=== PATIENT | male | born 1950 | race Hispanic/Latino ===

== ENCOUNTER → 2018-05-04 | Day surgery (SDC) | payer MEDICARE ==
[~2018-05-04] MED LIST: LEVOTHYROXINE75 MCG PO; MIDAZOLAM HCL 2 MG/2 ML VIAL ONE; SIMVASTATIN20 MG PO; VASOTEC10 MG PO
--- OUTSIDE RECORDS SUMMARY | 2018-05-04 07:58 | XMS REPORT | Summary of Care ---
Author Author [facility] Organization [facility] Address Unknown Phone Unavailable Encounter HQ Ana Cristina(FIN) [id number] Date(s): 04/27/18 - 04/27/18 [facility] [address], [address] [place], [place] [address]- [phone] Discharge Disposition: Home or Self Care Attending Physician: Maine Watters MD Vital Signs Most recent to 1 oldest [Reference Range]: Height 162.56 cm (04/27/18 8:05 AM) Temperature Oral 98.9 DegF [96.4-99.1 DegF] (04/27/18 8:05 AM) Blood Pressure 139/70 mmHg [90-140/60-90 mmHg] (04/27/18 8:05 AM) Respiratory Rate 16 BRMIN [14-20 BRMIN] (04/27/18 8:05 AM) Peripheral Pulse 53 bpm Rate [60-100 bpm] *LOW* (04/27/18 8:05 AM) Weight 71.989 kg (04/27/18 8:05 AM) Body Mass Index 27.24 m2 (04/27/18 8:05 AM) Problem List Condition Effective Dates Status Health Status Informant Benign essential Active hypertension(Confirm ed) Bilateral hearing Active loss(Confirmed) Body mass index Active 27.0-27.9, adult(Confirmed) Decreased Active libido(Confirmed) Vitamin B12 Active deficiency(Confirmed ) CPAP (continuous Active positive airway pressure) dependence(Confirmed ) GERD - Active Gastro-esophageal reflux disease(Confirmed) Uses hearing Active aid(Confirmed) History of Resolved Helicobacter pylori infection(Confirmed) History of colonic Active polyps(Confirmed) Hypercholesterolemia Active (Confirmed) Hypogonadism(Confirm Active ed) Hypothyroidism(Confi Active rmed) Medicare annual Active wellness visit, subsequent(Confirmed ) Overweight(Confirmed Active ) Encounter for Active immunization(Confirm ed) Screening for colon Active cancer(Confirmed) Screening for Active prostate cancer(Confirmed) Sleep Active apnea(Confirmed) Allergies, Adverse Reactions, Alerts Substance Reaction Severity Status NKDA Active Medications No Known Medications Results No data available for this section Immunizations Given and Recorded Vaccine Date Status Refusal Reason pneumococcal 13-valent vaccine1 04/27/18 Given pneumococcal 23-valent vaccine2 09/15/17 Given influenza virus vaccine, inactivated 12/17/16 Given influenza virus vaccine, inactivated 12/14/15 Given 1Result Comment: Patient waited 15 min with no reaction. 2Result Comment: Patient waited 15 min with no reaction. Procedures Procedure Date Related Diagnosis Body Site Status Pneumococcal vaccination1 04/27/18 Completed Comprehensive eye examination2 11/21/17 Completed Pneumococcal vaccination3 09/15/17 Completed Screening for malignant neoplasm of prostate4 09/12/17 Completed Influenza vaccination 12/17/16 Completed Full sleep study5 10/02/16 Completed Esophagogastroduodenoscopy6 05/24/15 Completed Colonoscopy7 06/28/14 Completed Repair of inguinal hernia8 2013 Completed Hydrocelectomy9 2010 Completed Repair of inguinal 2002 Completed 1Prevnar-13 2b/l senile cataract, observe 3Pneumovax 4PSA: 0.66 ng/ml 5OSA, CPAP at 6 cm H2O via Resamed Airfit P10 (M) with heated humidifier 6esophagitis, gastritis 7single polyp in ascending colon, two polyps in descending colon, diverticulosis 8Right inguinal area 9Left scrotum 10Left inguinal area Social History Social History Type Response Substance Abuse Use: None. Exercise Exercise type: none. Employment/School Status: Employed. Work/School description: [employer]. Alcohol Past Smoking Status Never smoker; Exposure to Tobacco Smoke None; Cigarette Smoking Last 365 Days No; Reg Smoking Cessation Counseling No entered on: 04/27/18 Assessment and Plan No data available for this section
--- OUTSIDE RECORDS SUMMARY | 2018-05-04 07:58 | XMS REPORT | Summary of Care ---
Author Author [facility] Organization [facility] Address Unknown Phone Unavailable Encounter HQ Ana Cristina(FIN) [id number] Date(s): 09/15/17 - 09/15/17 [facility] [address], [address] [place] [address]- [phone] Discharge Disposition: Home or Self Care Attending Physician: Maine Watters MD Vital Signs Most recent to 1 oldest [Reference Range]: Height 162.56 cm (09/15/17 1:52 PM) Temperature Oral 98.1 DegF [96.4-99.1 DegF] (09/15/17 1:52 PM) Blood Pressure 131/74 mmHg [90-140/60-90 mmHg] (09/15/17 1:52 PM) Respiratory Rate 16 BRMIN [14-20 BRMIN] (09/15/17 1:52 PM) Peripheral Pulse 60 bpm Rate [60-100 bpm] (09/15/17 1:52 PM) Weight 72.955 kg (09/15/17 1:52 PM) Body Mass Index 27.61 m2 (09/15/17 1:52 PM) Problem List Condition Effective Dates Status Health Status Informant Benign essential Active hypertension(Confirm ed) Bilateral hearing Active loss(Confirmed) Decreased Active libido(Confirmed) Vitamin B12 Active deficiency(Confirmed ) CPAP (continuous Active positive airway pressure) dependence(Confirmed ) GERD - Active Gastro-esophageal reflux disease(Confirmed) Uses hearing Active aid(Confirmed) History of Resolved Helicobacter pylori infection(Confirmed) History of colonic Active polyps(Confirmed) Hypercholesterolemia Active (Confirmed) Hypogonadism(Confirm Active ed) Hypothyroidism(Confi Active rmed) Medicare annual Active wellness visit, subsequent(Confirmed ) Overweight(Confirmed Active ) Encounter for Active immunization(Confirm ed) Screening for Active prostate cancer(Confirmed) Screening for Active glaucoma(Confirmed) Sleep Active apnea(Confirmed) Allergies, Adverse Reactions, Alerts Substance Reaction Severity Status NKDA Active Medications enalapril 10 mg oral tablet 10 mg=1 tab, PO, BID, # 180 tab, 1 Refill(s), Pharmacy: [id number] Start Date: 09/15/17 Stop Date: 03/14/18 Status: Ordered levothyroxine 75 mcg (0.075 mg) oral tablet 75 microgram=1 tab, PO, Daily, # 90 tab, 1 Refill(s), [place] [facility] [id number], Dose increased Start Date: 09/15/17 Status: Ordered simvastatin 10 mg oral tablet 10 mg=1 tab, PO, Bedtime, # 90 tab, 1 Refill(s), Pharmacy: [id number] Start Date: 09/15/17 Status: Ordered Results No data available for this section Immunizations Given and Recorded Vaccine Date Status Refusal Reason pneumococcal 23-valent vaccine1 09/15/17 Given influenza virus vaccine, inactivated 12/17/16 Given influenza virus vaccine, inactivated 12/14/15 Given 1Result Comment: Patient waited 15 min with no reaction. Procedures Procedure Date Related Diagnosis Body Site Status Pneumococcal vaccination1 09/15/17 Completed Screening for malignant neoplasm of prostate2 09/12/17 Completed Influenza vaccination 12/17/16 Completed Full sleep study3 10/02/16 Completed Esophagogastroduodenoscopy4 05/24/15 Completed Colonoscopy5 06/28/14 Completed Repair of inguinal hernia6 2013 Completed Hydrocelectomy2010 Completed Repair of inguinal hernia8 2002 Completed 1Pneumovax 2PSA: 0.66 ng/ml 3OSA, CPAP at 6 cm H2O via Resamed Airfit P10 (M) with heated humidifier 4esophagitis, gastritis 5single polyp in ascending colon, two polyps in descending colon, diverticulosis 6Right inguinal area 7Left scrotum 8Left inguinal area Social History Social History Type Response Substance Abuse Use: None. Exercise Exercise type: none. Employment/School Status: Employed. Work/School description: [employer]. Alcohol Past Smoking Status Never smoker; Exposure to Tobacco Smoke None; Cigarette Smoking Last 365 Days No; Reg Smoking Cessation Counseling No entered on: 09/15/17 Assessment and Plan No data available for this section
--- OUTSIDE RECORDS SUMMARY | 2018-05-04 07:58 | XMS REPORT | Continuity of Care Document ---
Author Author [facility] [place] [facility] Address Unknown Phone Unavailable Problems Problem Status Onset Date Classification Date Reported Comments Source Benign essential hypertension Active Problem 04/29/2018 [facility] Bilateral hearing loss Active Problem 04/29/2018 [facility] Decreased libido Active Problem 04/29/2018 [facility] Vitamin B12 deficiency Active Problem 04/29/2018 [facility] CPAP dependence(<span ID="[id number]">Confirmed</span>) Active Problem 04/29/2018 [facility] GERD - Gastro-esophageal reflux disease Active Problem 04/29/2018 [facility] Uses hearing aid Active Problem 04/29/2018 [facility] History of Helicobacter pylori infection Resolved Problem 04/29/2018 [facility] History of colonic polyps Active Problem 04/29/2018 [facility] Hypercholesterolemia Active Problem 04/29/2018 [facility] Hypogonadism Active Problem 04/29/2018 [facility] Hypothyroidism Active Problem 04/29/2018 [facility] Medicare annual wellness visit, initial Active Problem 09/14/2017 [facility] Overweight Active Problem 04/29/2018 [facility] Screening for prostate cancer Active Problem 04/29/2018 [facility] Screening for glaucoma Active Problem 09/18/2017 [facility] Sleep apnea Active Problem 04/29/2018 [facility] Medicare annual wellness visit, subsequent Active Problem 04/29/2018 [facility] Encounter for immunization Active Problem 04/29/2018 [facility] Body mass index 27.0-27.9, adult Active Problem 04/29/2018 [facility] Screening for colon cancer Active Problem 04/29/2018 [facility] Medications Medication Details Route Status Patient Instructions Ordering Provider Order Date Source enalapril 10 mg oral tablet 10 mg=1 tab, PO, BID, # 180 tab, 1 Refill(s), Pharmacy: [id number] Active 09/15/2017 [facility] simvastatin 10 mg oral tablet 10 mg=1 tab, PO, Bedtime, # 90 tab, 1 Refill(s), Pharmacy: [id number] Active 09/15/2017 [facility] levothyroxine 75 mcg (0.075 mg) oral tablet 75 microgram=1 tab, PO, Daily, # 90 tab, 1 Refill(s), Pharmacy: [id number], Dose increased Active 09/15/2017 [facility] Allergies, Adverse Reactions, Alerts Substance Category Reaction Severity Reaction type Status Date Reported Comments Source Immunizations Immunization Date Given Site Status Last Updated Comments Source pneumococcal 13-valent vaccine<sup>1</sup> 04/27/2018 [facility] completed [facility] Result Comment: Patient waited 15 min with no reaction. [facility] pneumococcal 23-valent vaccine<sup>1</sup> 09/15/2017 Right Deltoid completed [facility] Result Comment: Patient waited 15 min with no reaction. [facility] pneumococcal 23-valent vaccine<sup>2</sup> 09/15/2017 Right Deltoid completed [facility] Result Comment: Patient waited 15 min with no reaction. [facility] influenza virus vaccine, inactivated 12/17/2016 Right Deltoid completed [facility] influenza virus vaccine, inactivated 12/14/2015 Left Deltoid completed [facility] Results Order Name Results Value Reference Range Date Interpretation Comments Source Vital Signs Vital Sign Value Date Comments Source Temperature Oral (F) 98.9 F 04/27/2018 [facility] Respitory Rate 16 04/27/2018 [facility] Heart Rate 53 04/27/2018 [facility] Systolic (mm Hg) 139 04/27/2018 [facility] Diastolic (mm Hg) 70 04/27/2018 [facility] Weight 71.989 04/27/2018 [facility] BMI Calculated 27.24 04/27/2018 [facility] Height 162.56 cm 04/27/2018 [facility] Height 162.56 cm 09/15/2017 [facility] BMI Calculated 27.61 09/15/2017 [facility] Weight 72.955 09/15/2017 [facility] Systolic (mm Hg) 131 09/15/2017 [facility] Diastolic (mm Hg) 74 09/15/2017 [facility] Temperature Oral (F) 98.1 F 09/15/2017 [facility] Heart Rate 60 09/15/2017 [facility] Respitory Rate 16 09/15/2017 [facility] Encounters Location Location Details Encounter Type Encounter Number Reason For Visit Attending Provider ADM Date DC Date Status Source Outpatient [id number] MAINE GALEAS 06/08/2015 Active [facility] Outpatient [id number] MAINE GALEAS 09/07/2015 Active [facility] Outpatient [id number] NURSE VISIT 12/14/2015 Active [facility] Outpatient [id number] MAINE GALEAS 03/11/2016 Active [facility] Outpatient [id number] MAINE GALEAS 09/09/2016 Active [facility] Outpatient [id number] NURSE VISIT 12/17/2016 Active [facility] Outpatient [id number] MAINE GALEAS 02/13/2017 Active [facility] Outpatient [id number] MAINE GALEAS 09/11/2017 Active [facility] [place] [facility] Pre-Reg [id number] Maine Galeas 09/11/2017 09/11/2017 [facility] Outpatient [id number] MAINE GALEAS 09/15/2017 Active [facility] [place] Outpatient [id number] Maine Galeas 09/15/2017 09/16/2017 [facility] Outpatient [id number] MAINE GALEAS 04/27/2018 Active [facility] [place] Outpatient [id number] Maine Galeas 04/27/2018 04/28/2018 [facility] Outpatient [id number] AMINE GALEAS 10/26/2018 Active [facility] Procedures Procedure Code Date Perfomer Comments Source Pneumococcal vaccination<sup>1</sup> [id number] 04/27/2018 Prevnar- 13 [facility] Comprehensive eye examination<sup>2</sup> 69814550 11/21/2017 b/l senile cataract, observe [facility] Pneumococcal vaccination<sup>1</sup> [id number] 09/15/2017 Pneumovax [facility] Pneumococcal vaccination<sup>3</sup> 55126090 09/15/2017 Pneumovax [facility] Screening for malignant neoplasm of prostate<sup>2</sup> 827963220 09/12/2017 PSA: 0.66 ng/ml [facility] Screening for malignant neoplasm of prostate<sup>4</sup> 848149898 09/12/2017 PSA: 0.66 ng/ml [facility] Influenza vaccination [id number] 12/17/2016 [facility] Full sleep study<sup>1</sup> 72740840 10/02/2016 TRACIE, CPAP at 6 cm H2O via Resamed Airfit P10 (M) with heated humidifier [facility] Full sleep study<sup>3</sup> 94940142 10/02/2016 TRACIE, CPAP at 6 cm H2O via Resamed Airfit P10 (M) with heated humidifier [facility] Full sleep study<sup>5</sup> 82132192 10/02/2016 TRACIE, CPAP at 6 cm H2O via Resamed Airfit P10 (M) with heated humidifier [facility] Esophagogastroduodenoscopy<sup>2</sup> 92861493 05/24/2015 esophagitis, gastritis [facility] Esophagogastroduodenoscopy<sup>4</sup> 07306337 05/24/2015 esophagitis, gastritis [facility] Esophagogastroduodenoscopy<sup>6</sup> 44865719 05/24/2015 esophagitis, gastritis [facility] Colonoscopy<sup>3</sup> 01299020 06/28/2014 single polyp in ascending colon, two polyps in descending colon, diverticulosis [facility] Colonoscopy<sup>5</sup> 41070110 06/28/2014 single polyp in ascending colon, two polyps in descending colon, diverticulosis [facility] Colonoscopy<sup>7</sup> 95655769 06/28/2014 single polyp in ascending colon, two polyps in descending colon, diverticulosis [facility] Repair of inguinal hernia<sup>4</sup> 42445563 04/07/2013 Right inguinal area [facility] Repair of inguinal hernia<sup>6</sup> 14685843 04/07/2013 Right inguinal area [facility] Repair of inguinal hernia<sup>8</sup> 89371796 04/07/2013 Right inguinal area [facility] Hydrocelectomy<sup>5</sup> 75521432 04/07/2010 Left scrotum [facility] Hydrocelectomy<sup>7</sup> 23344785 04/07/2010 Left scrotum [facility] Hydrocelectomy<sup>9</sup> 47013419 04/07/2010 Left scrotum [facility] Repair of inguinal hernia<sup>6</sup> 79248935 04/07/2002 Left inguinal area [facility] Repair of inguinal hernia<sup>8</sup> 95438225 04/07/2002 Left inguinal area [facility] Repair of inguinal hernia<sup>10</sup> 11668626 04/07/2002 Left inguinal area [facility]
--- OUTSIDE RECORDS SUMMARY | 2018-05-04 07:58 | XMS REPORT | Summary of Care ---
Author Author [facility] Organization [facility] Address Unknown Phone Unavailable Encounter HQ Taya_jerry(FIN) [id number] Date(s): 09/11/17 - 09/11/17 [facility] [address], [address] [place], [place] [address]- [phone] Attending Physician: Maine Watters MD Vital Signs No data available for this section Problem List Condition Effective Dates Status Health [...] Active rmed) Medicare annual Active wellness visit, initial(Confirmed) Overweight(Confirmed Active ) Screening for Active prostate cancer(Confirmed) Screening for Active glaucoma(Confirmed) Sleep Active apnea(Confirmed) Allergies, Adverse Reactions, Alerts Substance Reaction Severity Status NKDA Active Medications No data available for this section Results No data available for this section Immunizations Given and Recorded Vaccine Date Status Refusal Reason influenza virus vaccine, inactivated 12/17/16 Given influenza virus vaccine, inactivated 12/14/15 Given Procedures Procedure Date Related Diagnosis Body Site Status Full sleep study1 10/02/16 Completed Esophagogastroduodenoscopy2 05/24/15 Completed Colonoscopy3 06/28/14 Completed Repair of inguinal hernia4 2013 Completed Hydrocelectomy2010 Completed Repair of inguinal hernia2002 Completed 1OSA, CPAP at 6 cm H2O via Resamed Airfit P10 (M) with heated humidifier 2esophagitis, gastritis 3single polyp in ascending colon, two polyps in descending colon, diverticulosis 4Right inguinal area 5Left scrotum 6Left inguinal area Social History Social History Type Response Substance Abuse Use: None. Exercise Exercise type: none. Employment/School Status: Employed. Work/School description: [employer]. Alcohol Past Smoking Status Never smoker; Exposure to Tobacco Smoke None; Cigarette Smoking Last 365 Days No; Reg Smoking Cessation Counseling No entered on: 02/13/17 Assessment and Plan No data available for this section
[2018-05-04 11:45] VITALS: BP 108/67
--- NOTE | 2018-05-04 14:02 | Operative Report ---
DATE OF PROCEDURE: May 04, 2018 REFERRING PHYSICIAN: Dr. Maine Delgado PROCEDURES PERFORMED 1. Esophagogastroduodenoscopy with esophageal dilatation and biopsies. 2. Colonoscopy with polypectomy. INDICATIONS FOR EGD: Heartburn and indigestion. INDICATIONS FOR COLONOSCOPY: Surveillance colonoscopy and personal history of colon polyps. MEDICATION: Patient was done under MAC. Please see anesthesiologist's note. PROCEDURE: With the patient in the left lateral decubitus position, the flexible fiberoptic Olympus gastroscope was introduced into the esophagus under direct visualization without any difficulty. There was some patchy erythema noted in the distal esophagus. There was a mild stricture noted at the GE junction and that was dilated to a size 52-Upper Sorbian Mahajan. The scope was then advanced with ease into the stomach traversing a small sliding hiatal hernia. Mucosa overlying the antrum and the body revealed some patchy erythema and mild to moderate edema, and biopsies were obtained and sent to stain for H. pylori. The pylorus was of normal contour and shape. It was intubated with ease. The scope was advanced all way to the 2nd portion of the duodenum. The scope was then withdrawn slowly. Mucosa overlying the proximal 2nd portion and the duodenal bulb appeared to be within normal limits. The scope was then withdrawn back into the stomach and retroflexed. Mucosa overlying the fundus and the cardia appeared to be within normal limits. The scope was then straightened out. It was subsequently withdrawn. Patient tolerated the procedure well. IMPRESSION 1. Distal esophagitis. 2. Esophageal stricture at gastroesophageal junction dilated to a size 52-Upper Sorbian Mahajan. 3. Small sliding hiatal hernia. 4. Gastritis, biopsied. Biopsies sent to stain for Helicobacter pylori. PLAN: Follow up histology. Initiate Protonix 40 mg 1 p.o. q.a.m. a.c. Patient was then turned around. After adequate lubrication of the anal canal, a flexible fiberoptic Olympus colonoscope was inserted into the rectum with ease and advanced all the way to the cecum. A minute polyp was hot biopsied from the cecum. The scope was then withdrawn slowly and additional polyp was hot biopsied from the ascending colon. The transverse appeared to be within normal limits. One polyp was hot biopsied from the descending colon. Diverticular disease was noted to involve the sigmoid colon. The rectum appeared to be within normal limits. The scope was then retroflexed into the distal rectum and small internal hemorrhoids were noted, none of which was actively bleeding. The scope was then straightened out. It was subsequently withdrawn. Patient tolerated the procedure well. IMPRESSION 1. Cecal polyp, hot biopsied. 2. Ascending colon polyp, hot biopsied. 3. Descending colon polyp, hot biopsied. 4. Diverticulosis. 5. Internal hemorrhoids, none actively bleeding. PLAN: Follow up histology. Initiate high-fiber and low-fat diet. Initiate high-fiber supplement. Patient might benefit from a followup colonoscopy in 3-5 years. Job#: [id number] RI cc: MAINE DELGADO MD
--- NOTE | 2018-05-04 14:05 | Operative Report ---
DATE OF PROCEDURE: May 04, 2018 REFERRING PHYSICIAN: Maine Watters MD PROCEDURE PERFORMED: Colonoscopy and polypectomy. INDICATIONS FOR COLONOSCOPY: Surveillance colonoscopy, personal history of colon polyps. MEDICATION: Patient was done under MAC. Please see anesthesiologist's note. PROCEDURE: With the patient in the left lateral decubitus position, the flexible fiberoptic Olympus colonoscope DICTATION STOPPED AT THIS POINT. "CANCEL" Job#: [id number]
== END | disposition home or self-care (01) ==
LOC: OR 07:56
PROVIDERS: ATTEND Internal Medicine Gastroenterology
DX: K22.2 Esophageal obstruction (principal); D12.0 Benign neoplasm of cecum; K29.70 Gastritis, unspecified, without bleeding; K20.8 Other esophagitis; K44.9 Diaphragmatic hernia without obstruction or gangrene; K57.30 Diverticulosis of large intestine without perforation or abscess without bleeding; K64.8 Other hemorrhoids; I10 Essential (primary) hypertension; E03.9 Hypothyroidism, unspecified; G47.33 Obstructive sleep apnea (adult) (pediatric); I45.10 Unspecified right bundle-branch block; R00.1 Bradycardia, unspecified; Z01.810 Encounter for preprocedural cardiovascular examination; Z68.27 Body mass index [BMI] 27.0-27.9, adult
CPT/HCPCS: 43239; 43450; 45384; 88305; 88312; 93005; J2250; 45378

== ENCOUNTER → 2024-04-21 | Day surgery (SDC) | payer MEDICARE ==
[2024-04-19 13:37] LABS: BASOPHILS % 0.5 % (0.0-1.0); EOSINOPHILS # (AUTO) 0.2 (0.0-0.4); EOSINOPHILS % 1.9 % (0.0-6.0); HEMATOCRIT 43.8 % (38.2-49.6); HEMOGLOBIN 15.6 g/dL (14.0-18.0); LYMPHOCYTES # (AUTO) 2.8 (1.0-3.2); LYMPHOCYTES % 33.3 % (18.0-39.1); MEAN CORPUSCULAR HEMOGLOBIN 34.2 pg (28-32); MEAN CORPUSCULAR HGB CONC 35.6 g/dL (31-35); MEAN CORPUSCULAR VOLUME 96.1 fL (81-99); MONOCYTES # (AUTO) 0.7 (0.2-0.8); MONOCYTES % 8.4 % (4.4-11.3); NEUTROPHILS # (AUTO) 4.6 (2.1-6.9); NEUTROPHILS % 55.5 % (38.7-80.0); PLATELET COUNT 252 x10e3/uL (140-360); RED BLOOD COUNT 4.56 x10e6/uL (4.3-5.7); RED CELL DISTRIBUTION WIDTH 12.7 % (11.7-14.4); WHITE BLOOD COUNT 8.32 x10e3/uL (4.8-10.8)
[~2024-04-21] MED LIST changes: +FAMOTIDINE 20 MG/2 ML VIAL IV ONE; +FENTANYL CITRATE/PF 100MCG/2 ML INJ ONE; +GLYCOPYRROLATE INJ 0.2 MG/ML VIAL ONE; +LIDOCAINE HCL 2% LOCAL INJ 5 ML SDV VIAL INJ ONE; -MIDAZOLAM HCL 2 MG/2 ML VIAL ONE; +ONDANSETRON HCL INJ 2MG/ML 2ML 2 MG/ML VIAL ONE; +PHENYLEPHRINE HCL 1% 10 MG/ML VIAL ONE; +PROPOFOL IV EMULSION 10 MG/ML 20 ML VIAL ONE; +PROPOFOL IV EMULSION 50 ML IV ONE; +VITAMIN D3125 MCG PO
[2024-04-21] MEDS: LACTATED RINGER'S 1,000 ML ONE (06:08)
[2024-04-21 08:29] VITALS: TEMP 97.8
[2024-04-21 09:00] VITALS: BP 119/87; PULSE 85; RESP 16; O2SAT 99
== END | disposition home or self-care (01) ==
LOC: OR 05:56
PROVIDERS: ATTEND Internal Medicine Gastroenterology
DX: K21.00 Gastro-esophageal reflux disease with esophagitis, without bleeding (principal); K29.50 Unspecified chronic gastritis without bleeding; K22.2 Esophageal obstruction; K31.A11 Gastric intestinal metaplasia without dysplasia, involving the antrum; Z86.0100 Personal history of colon polyps, unspecified; K57.30 Diverticulosis of large intestine without perforation or abscess without bleeding; K64.8 Other hemorrhoids; G47.33 Obstructive sleep apnea (adult) (pediatric); I10 Essential (primary) hypertension; E78.5 Hyperlipidemia, unspecified; E03.9 Hypothyroidism, unspecified; Z01.810 Encounter for preprocedural cardiovascular examination; Z01.812 Encounter for preprocedural laboratory examination; Z79.899 Other long term (current) drug therapy
CPT/HCPCS: 36415; 43239; 43450; 45378; 85025; 93005; J2003; J2371; J2405; J2470; J2704 ×2; J3010; J7121